=== PATIENT | female | born 1980 | race African-American/Black ===

== ENCOUNTER 2022-04-04 18:16 | Emergency (ER) | payer BC ==
[2022-04-04] MEDS ORDERED: Ketorolac Tromethamine 30 MG/ML VIAL ONE (18:51)
== END 2022-04-04 20:29 | disposition home or self-care (01) ==
LOC: CSHERS 18:16
DX: M79.672 Pain in left foot (principal); I10 Essential (primary) hypertension; Z79.899 Other long term (current) drug therapy
CPT/HCPCS: 96372; J1885

== ENCOUNTER 2022-06-09 18:32 | Emergency (ER) | payer BC | END 2022-06-09 20:03 | disposition home or self-care (01) | LOC: CSHERS 18:32 | DX: M54.12 Radiculopathy, cervical region (principal); I10 Essential (primary) hypertension; E11.9 Type 2 diabetes mellitus without complications; Z79.84 Long term (current) use of oral hypoglycemic drugs | CPT/HCPCS: 99283 ==

== ENCOUNTER 2022-12-04 18:34 | Emergency (ER) | payer BC ==
[2022-12-04] MEDS ORDERED: Acetaminophen 500 MG TAB ONE (19:10)
[2022-12-04] MEDS ORDERED: Ketorolac Tromethamine 30 MG/ML VIAL ONE (19:11)
== END 2022-12-04 19:55 | disposition home or self-care (01) ==
LOC: CSHERS 18:34
DX: S39.012A Strain of muscle, fascia and tendon of lower back, initial encounter (principal); R03.0 Elevated blood-pressure reading, without diagnosis of hypertension; M54.10 Radiculopathy, site unspecified; I10 Essential (primary) hypertension; E11.9 Type 2 diabetes mellitus without complications; X58.XXXA Exposure to other specified factors, initial encounter
CPT/HCPCS: 96372; 99283; J1885

== ENCOUNTER 2023-04-06 11:02 | Emergency (ER) | payer BC ==
[~2023-04-06 11:02] MED LIST: Iopamidol 300 61% 100 ML VIAL FS ONE
[2023-04-06] MEDS ORDERED: Morphine 4 MG/ML VIAL ONE (11:46)
[2023-04-06] MEDS ORDERED: Ondansetron PF 4 MG/2 ML Vial ONE (11:46)
[2023-04-06] MEDS ORDERED: Pantoprazole 40 MG VIAL ONE (11:47)
[2023-04-06 12:03] LABS: #Eosinphils 0.1 10x3/uL (0.0-0.5); #Monocytes 0.6 10x3/uL (0.0-1.1); #Neutrophils 4.8 10x3/uL (1.5-8.4); %Basophils 0.5 % (0.0-2.0); %Eosinophils 0.7 % (0.0-6.0); %Lymphocytes 37.8 % (18.0-47.0); %Monocytes 6.6 % (0.0-10.0); %Neutrophils 54.1 % (40.0-75.0); Hemoglobin 14.5 g/dL (12.0-15.5); Mean Corpuscular Volume 88.2 fl (81.6-98.3); Mean Platelet Volume 9.9 fl (7.4-10.4); Platelet Count 335 10x3/uL (150-450); RBC Distribution Width 11.9 % (11.5-14.5); Red Blood Cell (RBC) Count 4.84 10x6/uL (3.90-5.03); White Blood Cell (WBC) Count 8.8 10x3/uL (3.5-10.5)
[2023-04-06 12:18] LABS: ALT (SGPT) 26 U/L (8-55); AST (SGOT) 18 U/L (5-34); Albumin 3.7 g/dL (3.5-5.0); Alkaline Phosphatase 58 U/L (40-110); Anion Gap 13 mmol/L (10-20); BUN (Urea Nitrogen) 10 mg/dL (7.0-18.7); Bilirubin, Total 0.5 mg/dL (0.2-1.2); CK (CPK) 68 U/L (29-168); Calc. Creatinine Clearance 0 mL/min (70-130); Calcium 9.2 mg/dL (7.8-10.44); Carbon Dioxide 24 mmol/L (22-29); Chloride 108 mmol/L (98-107); Estimated GFR 91; Globulin 2.5 g/dL (2.4-3.5); Glucose 98 mg/dL (70-105); Lipase 37 U/L (8-78); Potassium 4.3 mmol/L (3.5-5.1); Protein, Total 6.2 g/dL (6.0-8.3); Sodium 141 mmol/L (136-145)
== END 2023-04-06 13:21 | disposition home or self-care (01) ==
LOC: CSHERS 11:02
DX: N28.89 Other specified disorders of kidney and ureter (principal); I10 Essential (primary) hypertension
CPT/HCPCS: 71045; 74177; 80053; 82550; 83690; 84484; 85025; 93005; 96361; 96374; 96375; C9113; J2270; J2405; Q9967

== ENCOUNTER 2023-04-27 11:13 | Emergency (ER) | payer BC, SELFPAY ==
[2023-04-27] MEDS ORDERED: Mag-Al Plus 1200 MG/1200 MG/120 MG/30 ML UDCUP ONE (12:35)
[2023-04-27 12:39] LABS: BHCG - Serum Negative (NEGATIVE); Pregs Control Background? CLEAR/WHITE (CLR/WHITE); Pregs Control Bar Appear? YES (CONTROL BAR)
[2023-04-27 12:42] LABS: #Eosinphils 0.2 10x3/uL (0.0-0.5); #Monocytes 0.7 10x3/uL (0.0-1.1); #Neutrophils 6.2 10x3/uL (1.5-8.4); %Basophils 0.3 % (0.0-2.0); %Eosinophils 2.2 % (0.0-6.0); %Lymphocytes 29.8 % (18.0-47.0); %Monocytes 6.6 % (0.0-10.0); %Neutrophils 60.7 % (40.0-75.0); Hemoglobin 14.4 g/dL (12.0-15.5); Mean Corpuscular HGB CONC 34.4 g/dL (32.0-36.0); Mean Corpuscular Volume 87.1 fl (81.6-98.3); Platelet Count 358 10x3/uL (150-450); RBC Distribution Width 11.9 % (11.5-14.5); White Blood Cell (WBC) Count 10.2 10x3/uL (3.5-10.5)
[2023-04-27 12:44] LABS: ALT (SGPT) 23 U/L (8-55); AST (SGOT) 16 U/L (5-34); Alkaline Phosphatase 63 U/L (40-110); Anion Gap 16 mmol/L (10-20); BUN (Urea Nitrogen) 7 mg/dL (7.0-18.7); Bilirubin, Total 0.5 mg/dL (0.2-1.2); Calc. Creatinine Clearance 0 mL/min (70-130); Calcium 9.3 mg/dL (7.8-10.44); Carbon Dioxide 20 mmol/L (22-29); Chloride 108 mmol/L (98-107); Estimated GFR 90; Globulin 3.1 g/dL (2.4-3.5); Glucose 101 mg/dL (70-105); Lipase 35 U/L (8-78); Potassium 3.6 mmol/L (3.5-5.1); Protein, Total 7.1 g/dL (6.0-8.3); Sodium 140 mmol/L (136-145)
[2023-04-27] MEDS ORDERED: Pantoprazole 40 MG VIAL ONE (13:04)
[2023-04-27] MEDS ORDERED: Dicyclomine 20 MG/2 ML VIAL ONE (13:54)
== END 2023-04-27 15:25 | disposition home or self-care (01) ==
LOC: CSHERS 11:13
DX: R10.13 Epigastric pain (principal); R19.7 Diarrhea, unspecified; I10 Essential (primary) hypertension; E11.9 Type 2 diabetes mellitus without complications; E03.9 Hypothyroidism, unspecified; K21.9 Gastro-esophageal reflux disease without esophagitis
CPT/HCPCS: 76705; 80053; 83690; 84703; 85025; 96361; 96372; 96374; C9113

== ENCOUNTER 2023-07-29 16:58 | Emergency (ER) | payer BC, SELFPAY ==
[2023-07-29 18:31] LABS: SARS-CoV-2 NAA Rapid Test DETECTED (NotDetected)
[2023-07-29] MEDS ORDERED: Ibuprofen 200 MG TAB ONE (18:58)
[2023-07-29] MEDS ORDERED: Dexamethasone 10 MG/ML VIAL ONE (19:17)
[2023-07-29] MEDS ORDERED: Ventolin HFA Inhaler 60 PUFF INHALER ONE (19:19)
[2023-07-29] MEDS ORDERED: Oxymetazoline HCl 0.05% ( 15 ML ) ONE (20:46)
== END 2023-07-29 20:54 | disposition home or self-care (01) ==
LOC: CSHERS 16:58
DX: U07.1 COVID-19 (principal); K21.9 Gastro-esophageal reflux disease without esophagitis; E11.9 Type 2 diabetes mellitus without complications; I10 Essential (primary) hypertension; E03.9 Hypothyroidism, unspecified
CPT/HCPCS: 71045; J1100; U0002

== ENCOUNTER 2024-08-04 13:13 | Emergency (ER) | payer BC, OTHER ==
[2024-08-04] MEDS ORDERED: Lidocaine 4% Patch ONE (14:15)
[2024-08-04] MEDS ORDERED: Ketorolac Tromethamine 30 MG (1 mL) VIAL ONE (14:15)
== END 2024-08-04 14:43 | disposition home or self-care (01) ==
LOC: CSHERS 13:13
DX: M54.32 Sciatica, left side (principal); I10 Essential (primary) hypertension; E11.9 Type 2 diabetes mellitus without complications; E03.9 Hypothyroidism, unspecified; Z79.899 Other long term (current) drug therapy
CPT/HCPCS: 96372; 99283; J1885

== ENCOUNTER 2024-09-12 19:22 | Inpatient (IN) | payer BC, OTHER ==
[~2024-09-12 19:22] MED LIST changes: -Iopamidol 300 61% 100 ML VIAL FS ONE; +Iopamidol 370 76% 100 ML VIAL ONE
[2024-09-12] MEDS ORDERED: Morphine 4 MG/ML VIAL ONE ×2 (20:11→22:21)
[2024-09-12] MEDS ORDERED: Ondansetron PF 4 MG/2 ML Vial ONE (20:11)
[2024-09-12 20:47] LABS: Bilirubin Neg (Negative); Blood, Urine Negative (Negative); Clarity Slightly Cloudy (Clear); Glucose, Urine (Dipstick) Normal (Negative); Ketone, Urine Negative (Negative); Leukocyte Negative (Negative); Nitrite Negative (Negative); Protein, Urine (Dipstick) 15 mg/dl (Neg-Trace)
[2024-09-12 20:48] LABS: Pregnancy Test - Urine (BHCG) Negative (Negative); Pregu Control Background? CLEAR/WHITE (CLR/WHITE); Pregu Control Bar Appear? YES (CONTROL BAR)
[2024-09-12 20:52] LABS: #Basophils 0.03 10x3/uL (0.0-0.2); #Eosinophils 0.05 10x3/uL (0.0-0.5); #Monocytes 0.61 10x3/uL (0.0-1.1); #Neutrophils 4.65 10x3/uL (1.5-8.4); %Basophils 0.3 % (0.0-2.0); %Eosinophils 0.6 % (0.0-6.0); %Lymphocytes 37.6 % (18.0-47.0); %Monocytes 7.1 % (0.0-10.0); %Neutrophils 54.2 % (40.0-75.0); Hematocrit 40.4 % (34.9-44.5); Hemoglobin 13.3 g/dL (12.0-15.5); Mean Corpuscular HGB CONC 32.9 g/dL (32.0-36.0); Mean Corpuscular Hemoglobin 30.3 pg (27.0-33.0); Mean Platelet Volume 9.9 fL (7.4-10.4); Platelet Count 335 10x3/uL (150-450); RBC Distribution Width 12.6 % (11.5-14.5); Red Blood Cell (RBC) Count 4.39 10x6/uL (3.90-5.03); White Blood Cell (WBC) Count 8.6 10x3/uL (3.5-10.5)
[2024-09-12 21:03] LABS: ALT (SGPT) 13 U/L (8-55); AST (SGOT) 15 U/L (5-34); Albumin 3.8 g/dL (3.5-5.0); Alkaline Phosphatase 60 U/L (40-110); Anion Gap 16 mmol/L (10-20); BUN (Urea Nitrogen) 13 mg/dL (7.0-18.7); Bilirubin, Total 0.3 mg/dL (0.2-1.2); Calc. Creatinine Clearance 0 mL/min (70-130); Calcium 9.7 mg/dL (7.8-10.44); Carbon Dioxide 22 mmol/L (22-29); Chloride 107 mmol/L (98-107); Estimated GFR 91; Globulin 3.4 g/dL (2.4-3.5); Glucose 91 mg/dL (70-105); Lipase 58 U/L (8-78); Potassium 3.9 mmol/L (3.5-5.1); Protein, Total 7.2 g/dL (6.0-8.3); Sodium 141 mmol/L (136-145)
[2024-09-12 21:04] LABS: CAUTI Indications for Culture Pelvic or flank pain
[2024-09-12 21:05] LABS: Bacteria/HPF Rare-Few HPF (None Seen); RBC/HPF 0-3 HPF (0-3); WBC/HPF 0-3 HPF (0-3)
[2024-09-12 21:06] LABS: Urine Culture Reflex No No
[2024-09-12] MEDS: Lactated Ringer's 1,000 ML IV SCH (22:30)
[2024-09-12] MEDS ORDERED: Ondansetron PF 4 MG/2 ML Vial IVP PRN (22:30)
[2024-09-12] MEDS ORDERED: HYDROmorphone 0.5 MG/0.5 ML SYRINGE ONE (23:07)
[2024-09-13 01:04] VITALS: BMI 32.5
[2024-09-13] MEDS: Morphine 4 MG/ML VIAL SLOW IVP PRN ×2 (01:09→09:57)
[2024-09-13] MEDS: Ketorolac Tromethamine 30 MG (1 mL) VIAL IVP SCH (05:11)
[2024-09-13] MEDS ORDERED: Morphine 2 MG/ML VIAL SLOW IVP PRN (06:42)
[2024-09-13] MEDS ORDERED: hydrALAZINE 20 MG/ML VIAL SLOW IVP PRN (06:42)
[2024-09-13] MEDS ORDERED: Ondansetron ODT 4 MG TAB PO PRN (06:42)
[2024-09-13] MEDS: Lactated Ringer's 1,000 ML IV SCH (07:37)
[2024-09-13] MEDS: Pantoprazole 40 MG VIAL IVP SCH (09:30)
[2024-09-13] MEDS: Ondansetron PF 4 MG/2 ML Vial IVP PRN (11:02)
[2024-09-13] MEDS: Ketorolac Tromethamine 30 MG (1 mL) VIAL IVP PRN (16:16)
[2024-09-13] MEDS: diphenhydrAMINE 50 MG CAP PO PRN (20:41)
[2024-09-13] MEDS: Enoxaparin 40 MG (0.4 mL) SYRINGE SC SCH (20:42)
[2024-09-14 04:47] LABS: #Basophils 0.02 10x3/uL (0.0-0.2); #Eosinophils 0.05 10x3/uL (0.0-0.5); #Neutrophils 7.39 10x3/uL (1.5-8.4); %Basophils 0.2 % (0.0-2.0); %Eosinophils 0.4 % (0.0-6.0); %Lymphocytes 28.7 % (18.0-47.0); %Monocytes 6.1 % (0.0-10.0); %Neutrophils 64.3 % (40.0-75.0); Hematocrit 34.4 % (34.9-44.5); Hemoglobin 11.3 g/dL (12.0-15.5); Mean Corpuscular HGB CONC 32.8 g/dL (32.0-36.0); Mean Corpuscular Hemoglobin 31.2 pg (27.0-33.0); Mean Platelet Volume 10.8 fL (7.4-10.4); Platelet Count 263 10x3/uL (150-450); RBC Distribution Width 12.9 % (11.5-14.5); Red Blood Cell (RBC) Count 3.62 10x6/uL (3.90-5.03); White Blood Cell (WBC) Count 11.5 10x3/uL (3.5-10.5)
[2024-09-14 05:03] LABS: ALT (SGPT) 10 U/L (8-55); AST (SGOT) 11 U/L (5-34); Albumin 3.2 g/dL (3.5-5.0); Alkaline Phosphatase 48 U/L (40-110); Anion Gap 13 mmol/L (10-20); BUN (Urea Nitrogen) 11 mg/dL (7.0-18.7); Bilirubin, Total 0.6 mg/dL (0.2-1.2); Calc. Creatinine Clearance 135 mL/min (70-130); Calcium 9.1 mg/dL (7.8-10.44); Carbon Dioxide 27 mmol/L (22-29); Chloride 108 mmol/L (98-107); Estimated GFR 111; Globulin 2.4 g/dL (2.4-3.5); Glucose 78 mg/dL (70-105); Potassium 3.7 mmol/L (3.5-5.1); Protein, Total 5.6 g/dL (6.0-8.3); Sodium 144 mmol/L (136-145)
[2024-09-14] MEDS: Pantoprazole 40 MG VIAL IVP SCH (08:25)
[2024-09-14] MEDS: Levothyroxine 150 MCG TAB PO SCH (09:51)
[2024-09-14] MEDS: Cyanocobalamin (Vitamin B-12) 1,000 MCG TAB PO SCH (09:51)
[2024-09-14] MEDS: Multivitamin W/ Minerals 1 TAB PO SCH (09:51)
[2024-09-14 11:54] VITALS: BP 109/69; TEMP 98.1
[2024-09-15] MEDS ORDERED: Levothyroxine 150 MCG TAB PO SCH (06:00)
== END 2024-09-14 12:25 | disposition home or self-care (01) | DRG 390 ==
LOC: CSHERS 19:22 → CSHTELE 23:02
PROVIDERS: ADMIT Specialist; ATTEND Specialist
DX: K56.609 Unspecified intestinal obstruction, unspecified as to partial versus complete obstruction (principal); I10 Essential (primary) hypertension; E11.9 Type 2 diabetes mellitus without complications; K21.9 Gastro-esophageal reflux disease without esophagitis; E89.0 Postprocedural hypothyroidism; E66.01 Morbid (severe) obesity due to excess calories; Z90.710 Acquired absence of both cervix and uterus; Z85.850 Personal history of malignant neoplasm of thyroid; Z93.1 Gastrostomy status; Z98.84 Bariatric surgery status; Z88.8 Allergy status to other drugs, medicaments and biological substances; Z68.32 Body mass index [BMI] 32.0-32.9, adult
CPT/HCPCS: 36415; 71045; 74177; 74250; 80053; 81001; 81025; 83690; 85025; 94762; 96374; 96375; 96376; J1171; J1650; J1885; J2272; J2405; J2470; J7120; Q9967

== ENCOUNTER 2024-09-14 21:00 | Inpatient (IN) | payer OTHER ==
[~2024-09-14 21:00] MED LIST changes: +Iopamidol 300 61% 100 ML VIAL FS ONE; -Iopamidol 370 76% 100 ML VIAL ONE
[2024-09-14] MEDS ORDERED: Ketorolac Tromethamine 30 MG (1 mL) VIAL ONE (21:44)
[2024-09-14 22:27] LABS: Bilirubin Neg (Negative); Blood, Urine Negative (Negative); Clarity Clear (Clear); Glucose, Urine (Dipstick) Normal (Negative); Ketone, Urine 5 mg/dL (Negative); Leukocyte 25 (Negative); Nitrite Negative (Negative); Protein, Urine (Dipstick) 15 mg/dl (Neg-Trace); Specific Gravity, Urine 1.025 (1.005-1.030)
[2024-09-14] MEDS ORDERED: Morphine 4 MG/ML VIAL ONE (22:43)
[2024-09-14 22:46] LABS: #Basophils 0.03 10x3/uL (0.0-0.2); #Eosinophils 0.08 10x3/uL (0.0-0.5); #Monocytes 0.57 10x3/uL (0.0-1.1); #Neutrophils 4.37 10x3/uL (1.5-8.4); %Basophils 0.3 % (0.0-2.0); %Eosinophils 0.9 % (0.0-6.0); %Lymphocytes 45.6 % (18.0-47.0); %Monocytes 6.1 % (0.0-10.0); %Neutrophils 46.9 % (40.0-75.0); Hematocrit 34.7 % (34.9-44.5); Hemoglobin 11.3 g/dL (12.0-15.5); Mean Corpuscular HGB CONC 32.6 g/dL (32.0-36.0); Mean Corpuscular Hemoglobin 30.1 pg (27.0-33.0); Mean Corpuscular Volume 92.5 fL (81.6-98.3); Mean Platelet Volume 10.3 fL (7.4-10.4); Platelet Count 288 10x3/uL (150-450); RBC Distribution Width 12.6 % (11.5-14.5); Red Blood Cell (RBC) Count 3.75 10x6/uL (3.90-5.03); White Blood Cell (WBC) Count 9.3 10x3/uL (3.5-10.5)
[2024-09-14 22:49] LABS: ALT (SGPT) 10 U/L (8-55); AST (SGOT) 14 U/L (5-34); Albumin 3.4 g/dL (3.5-5.0); Alkaline Phosphatase 47 U/L (40-110); Anion Gap 12 mmol/L (10-20); BUN (Urea Nitrogen) 16 mg/dL (7.0-18.7); Bilirubin, Total 0.3 mg/dL (0.2-1.2); CK (CPK) 130 U/L (29-168); Calc. Creatinine Clearance 0 mL/min (70-130); Calcium 9.2 mg/dL (7.8-10.44); Carbon Dioxide 26 mmol/L (22-29); Chloride 108 mmol/L (98-107); Estimated GFR 86; Globulin 2.7 g/dL (2.4-3.5); Glucose 82 mg/dL (70-105); Lipase 71 U/L (8-78); Potassium 3.4 mmol/L (3.5-5.1); Protein, Total 6.1 g/dL (6.0-8.3); Sodium 143 mmol/L (136-145)
[2024-09-14] MEDS ORDERED: Ondansetron PF 4 MG/2 ML Vial ONE (22:59)
[2024-09-14] MEDS ORDERED: Piperacillin/Tazobactam 4.5 GM VIAL ONE (22:59)
[2024-09-14] MEDS ORDERED: HYDROmorphone 0.5 MG/0.5 ML SYRINGE ONE (23:01)
[2024-09-14 23:40] LABS: CAUTI Indications for Culture Pelvic or flank pain; RBC/HPF None Seen HPF (0-3); Squamous Epithelial 0-3 HPF (0-3); WBC/HPF None Seen HPF (0-3)
[2024-09-14 23:41] LABS: Bacteria/HPF Rare-Few HPF (None Seen); Calcium Oxalate Crystals 1+ HPF (None Seen); Mucous/LPF Rare LPF (<2+); Urine Culture Reflex No No
[2024-09-15] MEDS ORDERED: Morphine 4 MG/ML VIAL ONE ×2 (00:32→07:03)
[2024-09-15] MEDS ORDERED: diphenhydrAMINE 50 MG/ML VIAL ONE (03:17)
[2024-09-15] MEDS ORDERED: Ondansetron PF 4 MG/2 ML Vial IVP PRN (09:13)
[2024-09-15] MEDS ORDERED: hydrALAZINE 20 MG/ML VIAL SLOW IVP PRN (09:14)
[2024-09-15 09:34] VITALS: BMI 34.2
[2024-09-15] MEDS ORDERED: Famotidine 20 MG TAB ONE (09:47)
[2024-09-15] MEDS: Lactated Ringer's 1,000 ML IV SCH (09:51)
[2024-09-15] MEDS: Famotidine 20 MG TAB PO SCH (10:00)
[2024-09-15] MEDS: Cyanocobalamin (Vitamin B-12) 1,000 MCG TAB PO SCH (10:00)
[2024-09-15] MEDS: Levothyroxine 150 MCG TAB PO SCH (10:01)
[2024-09-15] MEDS: Multivitamin W/ Minerals 1 TAB PO SCH (10:01)
[2024-09-15] MEDS ORDERED: Ketorolac Tromethamine 30 MG (1 mL) VIAL ONE (10:31)
[2024-09-15] MEDS: Ketorolac Tromethamine 30 MG (1 mL) VIAL IVP PRN (10:39)
[2024-09-15] MEDS: Morphine 4 MG/ML VIAL SLOW IVP PRN (15:14)
[2024-09-16 04:12] LABS: #Basophils 0.05 10x3/uL (0.0-0.2); #Monocytes 0.41 10x3/uL (0.0-1.1); %Basophils 0.7 % (0.0-2.0); %Eosinophils 1.4 % (0.0-6.0); %Lymphocytes 51.6 % (18.0-47.0); %Monocytes 5.9 % (0.0-10.0); %Neutrophils 40.3 % (40.0-75.0); Hematocrit 33.6 % (34.9-44.5); Hemoglobin 11.2 g/dL (12.0-15.5); Mean Corpuscular HGB CONC 33.3 g/dL (32.0-36.0); Mean Corpuscular Hemoglobin 31.4 pg (27.0-33.0); Mean Corpuscular Volume 94.1 fL (81.6-98.3); Mean Platelet Volume 10.3 fL (7.4-10.4); Platelet Count 285 10x3/uL (150-450); RBC Distribution Width 12.5 % (11.5-14.5); Red Blood Cell (RBC) Count 3.57 10x6/uL (3.90-5.03)
[2024-09-16 04:52] LABS: ALT (SGPT) 7 U/L (8-55); AST (SGOT) 13 U/L (5-34); Albumin 3.1 g/dL (3.5-5.0); Alkaline Phosphatase 45 U/L (40-110); Anion Gap 11 mmol/L (10-20); BUN (Urea Nitrogen) 7 mg/dL (7.0-18.7); Bilirubin, Total 0.5 mg/dL (0.2-1.2); Calc. Creatinine Clearance 136 mL/min (70-130); Calcium 8.8 mg/dL (7.8-10.44); Carbon Dioxide 26 mmol/L (22-29); Chloride 106 mmol/L (98-107); Estimated GFR 106; Globulin 2.3 g/dL (2.4-3.5); Glucose 72 mg/dL (70-105); Potassium 3.4 mmol/L (3.5-5.1); Protein, Total 5.4 g/dL (6.0-8.3); Sodium 140 mmol/L (136-145)
[2024-09-16] MEDS: Levothyroxine 150 MCG TAB PO SCH (05:58)
[2024-09-16] MEDS ORDERED: Levothyroxine 150 MCG TAB PO SCH (06:00)
[2024-09-16] MEDS ORDERED: MULTIVITAMIN PO SCH (09:00)
[2024-09-16] MEDS ORDERED: Cyanocobalamin (Vitamin B-12) 1,000 MCG TAB PO SCH (09:00)
[2024-09-16] MEDS ORDERED: FOLIC ACID PO SCH (09:00)
[2024-09-16] MEDS ORDERED: IRON PO SCH (09:00)
[2024-09-16] MEDS ORDERED: [UNRECOGNIZED DRUG - OTHER] PO SCH (09:00)
[2024-09-16] MEDS ORDERED: CEFAZOLIN 2 GM in Sodium Chloride 0.9% 100 ML IVPB SCH (09:45)
[2024-09-16] MEDS ORDERED: Bupivacaine HCl 0.5%/Epinephrine 1:200,000/PF 30 ml Vial ONE (11:57)
[2024-09-16] MEDS ORDERED: Ondansetron PF 4 MG/2 ML Vial ONE (11:59)
[2024-09-16] MEDS ORDERED: Lidocaine 1% PF 5 ML VIAL ONE (11:59)
[2024-09-16] MEDS ORDERED: PROPOFOL 20 ML ONE (11:59)
[2024-09-16] MEDS ORDERED: Midazolam HCl 2 mg/2 ml Vial ONE (11:59)
[2024-09-16] MEDS ORDERED: SUGAMMADEX SODIUM 200 MG/2 ML VIAL ONE (11:59)
[2024-09-16] MEDS ORDERED: Dexamethasone 20 MG/5 ML VIAL ONE (11:59)
[2024-09-16] MEDS ORDERED: fentaNYL 50 mcg/mL 1 mL Vial ONE ×3 (11:59→13:12)
[2024-09-16] MEDS ORDERED: Rocuronium Bromide 10 MG/ML (10ML VIAL) ONE (11:59)
[2024-09-16] MEDS ORDERED: CEFAZOLIN 2 GM VIAL ONE (12:29)
[2024-09-16] MEDS ORDERED: Glycopyrrolate 0.2 MG/ML 5 ML SYRINGE ONE (12:58)
[2024-09-16] MEDS: Divalproex Sodium 500 MG ER.TAB PO SCH (20:01)
[2024-09-16] MEDS: hydrOXYzine 10 MG TAB PO PRN (20:01)
[2024-09-17 04:30] LABS: ALT (SGPT) 9 U/L (8-55); AST (SGOT) 13 U/L (5-34); Albumin 3.2 g/dL (3.5-5.0); Alkaline Phosphatase 46 U/L (40-110); Anion Gap 15 mmol/L (10-20); BUN (Urea Nitrogen) 5 mg/dL (7.0-18.7); Bilirubin, Total 0.5 mg/dL (0.2-1.2); Calc. Creatinine Clearance 130 mL/min (70-130); Calcium 9.3 mg/dL (7.8-10.44); Carbon Dioxide 26 mmol/L (22-29); Chloride 106 mmol/L (98-107); Estimated GFR 101; Globulin 2.7 g/dL (2.4-3.5); Glucose 105 mg/dL (70-105); Potassium 3.9 mmol/L (3.5-5.1); Protein, Total 5.9 g/dL (6.0-8.3); Sodium 143 mmol/L (136-145)
[2024-09-17 04:40] LABS: #Basophils 0.01 10x3/uL (0.0-0.2); #Eosinophils 0.02 10x3/uL (0.0-0.5); #Monocytes 0.51 10x3/uL (0.0-1.1); #Neutrophils 8.09 10x3/uL (1.5-8.4); %Basophils 0.1 % (0.0-2.0); %Eosinophils 0.2 % (0.0-6.0); %Lymphocytes 14.5 % (18.0-47.0); Hematocrit 34.8 % (34.9-44.5); Hemoglobin 12.1 g/dL (12.0-15.5); Mean Corpuscular HGB CONC 34.8 g/dL (32.0-36.0); Mean Corpuscular Hemoglobin 31.8 pg (27.0-33.0); Mean Corpuscular Volume 91.3 fL (81.6-98.3); Mean Platelet Volume 9.9 fL (7.4-10.4); Platelet Count 291 10x3/uL (150-450); RBC Distribution Width 12.2 % (11.5-14.5); Red Blood Cell (RBC) Count 3.81 10x6/uL (3.90-5.03); White Blood Cell (WBC) Count 10.1 10x3/uL (3.5-10.5)
[2024-09-17] MEDS: Escitalopram Oxalate 10 mg Tablet PO SCH (10:10)
[2024-09-17] MEDS: Amlodipine 5 MG TAB PO SCH (10:11)
[2024-09-17] MEDS: Simethicone Chewable 80 MG TAB PO PRN (11:17)
[2024-09-17] MEDS: HYDROcodone/Acetaminophen 5/325 mg Tablet PO PRN (11:17)
[2024-09-18] MEDS: Lidocaine 10 ML, Aluminum & Magnesium Hydroxide 30 ML SSW SCH (08:29)
[2024-09-18 11:24] VITALS: BP 118/82; TEMP 98.2
== END 2024-09-18 13:57 | disposition home or self-care (01) | DRG 337 ==
LOC: CSHERS 21:00 → CSHERHOLD 23:07 → CSHTELE 09-15 12:56
PROVIDERS: ADMIT Surgery; ATTEND Surgery
PROC: 0DN84ZZ Release Small Intestine, Percutaneous Endoscopic Approach (ICD-10-PCS; principal; 2024-09-16)
DX: K56.600 Partial intestinal obstruction, unspecified as to cause (principal); I10 Essential (primary) hypertension; K21.9 Gastro-esophageal reflux disease without esophagitis; E89.0 Postprocedural hypothyroidism; F41.9 Anxiety disorder, unspecified; F32.A Depression, unspecified; E66.9 Obesity, unspecified; G89.29 Other chronic pain; Z79.890 Hormone replacement therapy; Z79.84 Long term (current) use of oral hypoglycemic drugs; Z79.899 Other long term (current) drug therapy; Z90.89 Acquired absence of other organs; Z90.711 Acquired absence of uterus with remaining cervical stump; Z85.850 Personal history of malignant neoplasm of thyroid; Z85.41 Personal history of malignant neoplasm of cervix uteri; Z68.34 Body mass index [BMI] 34.0-34.9, adult
CPT/HCPCS: 36415; 74018; 74177; 80053; 81001; 82550; 83605; 83690; 85025; 93005; 96361; 96365; 96375; 96376; J1100; J1171; J1200; J1885; J2250; J2272; J2405; J2543; J2704; J3010; J7120; Q9967

== ENCOUNTER 2025-05-10 17:50 | Emergency (ER) | payer BC, OTHER ==
[2025-05-10] MEDS ORDERED: Ketorolac Tromethamine 30 MG (1 mL) VIAL ONE (18:16)
== END 2025-05-10 18:50 | disposition home or self-care (01) ==
LOC: CSHERS 17:50
DX: B34.9 Viral infection, unspecified (principal); I10 Essential (primary) hypertension
CPT/HCPCS: 87400; 87426; 96372; 99283; J1885

== ENCOUNTER 2025-06-03 08:59 | Emergency (ER) | payer BC, OTHER ==
[2025-06-03] MEDS ORDERED: diphenhydrAMINE 50 MG/ML VIAL ONE (09:52)
[2025-06-03] MEDS ORDERED: Metoclopramide HCl 10 MG (2 mL) VIAL ONE (09:52)
[2025-06-03] MEDS ORDERED: Ketorolac Tromethamine 30 MG (1 mL) VIAL ONE (09:52)
[2025-06-03] MEDS ORDERED: Acetaminophen 500 MG TAB ONE (13:04)
== END 2025-06-03 13:11 | disposition home or self-care (01) ==
LOC: CSHERS 08:59
DX: R51.9 Headache, unspecified (principal); I10 Essential (primary) hypertension; E03.9 Hypothyroidism, unspecified; Z79.899 Other long term (current) drug therapy
CPT/HCPCS: 70450; 87426; 96374; 96375; J1200; J1885; J2765

== ENCOUNTER 2025-09-16 16:10 | Emergency (ER) | payer BC, OTHER ==
[2025-09-16] MEDS ORDERED: Ketorolac Tromethamine 30 MG (1 mL) VIAL ONE (16:30)
== END 2025-09-16 19:18 | disposition home or self-care (01) ==
LOC: CSHERS 16:10
DX: R20.2 Paresthesia of skin (principal); I10 Essential (primary) hypertension
CPT/HCPCS: 96372; J1885